=== PATIENT | male | born 1940 | race Caucasian/White ===

== ENCOUNTER 2023-09-08 20:03 | Inpatient (IN) | payer MEDICARE, OTHER, SELFPAY ==
[2023-09-08] VITALS (8 sets, daily range): BP systolic 124–183; BP diastolic 64–161; BMI 27.4
[2023-09-08 14:56] LABS: % Basophils 0.4 % (0-2); % Immature Granulocytes 0.2 % (0-0.5); % Lymphocytes 7.3 % (20.5-51.1); % Monocytes 6.7 % (1.7-9.3); % Neutrophils 85.4 % (42.2-75.2); Absolute Basophils 0.1 10^3/uL (0-0.2); Absolute Lymphocytes 0.9 10^3/uL (1.2-3.4); Absolute Monocytes 0.8 10^3/uL (0.1-0.6); Absolute Neutrophils 10.5 10^3/uL (1.4-6.5); Hematocrit 37.5 % (39.0-52.0); Hemoglobin 13.3 g/dL (13.0-18.0); Mean Corp Hgb Conc. 35.5 g/dL (33.0-37.0); Mean Corpuscular Hgb 31.1 pg (27.0-31.0); Mean Corpuscular Volume 87.6 fL (80.0-94.0); Mean Platelet Volume 9.7 fL (7.4-10.4); Nucleated Red Blood Cells % 0 % (-); Platelet Count 165 10^3/uL (130-400); Red Blood Cell Count 4.28 10^6/uL (4.70-6.10); Red Cell Dist. Width 12.2 % (11.5-14.5); White Blood Cell Count 12.3 10^3/uL (4.8-10.8)
[2023-09-08 15:13] LABS: COVID-19 Antigen Negative (Negative)
[2023-09-08 15:18] LABS: ALT (SGPT) 23 U/L (0-50); AST (SGOT) 37 U/L (17-59); Albumin 4.3 g/dl (3.5-5.0); Alkaline Phosphatase 72 U/L (38-126); Blood Urea Nitrogen 41 mg/dl (9-20); Calcium 9.2 mg/dl (8.4-10.2); Carbon Dioxide 21 mmol/L (22-30); Chloride 99 mmol/L (98-107); Glucose 297 mg/dl (70-99); Potassium 5.4 mmol/L (3.5-5.1); Sodium 132 mmol/L (135-145); Total Bilirubin 1.8 mg/dl (0.2-1.3); eGFR 30.85
[2023-09-08 16:06] LABS: Lactic Acid 3.5 mmol/L (0.7-2.0)
--- NOTE | 2023-09-08 17:27 | ED.GENMED ---
History of Present Illness
General
Chief Complaint: Fever
Time Seen by Provider: 09/08/23 17:17
Travel History
Have you had any contact with someone who has COVID-19?: No
Do you have any symptoms of coronavirus? Fever > 100 degrees, chills, cough, shortness of breath, sore throat, loss of taste or smell, muscle aches, or headache?: Yes
Symptoms:: fever
History of Present Illness
History of Present Illness:
82-year-old male with history of hypertension and diet-controlled diabetes presents to the emergency department for evaluation of fever and cough for the past 5 days. Fever was first noted today. States that he has been 'laying around all day' for
the past 5 days due to fatigue and weakness. Reports low p.o. intake during that time. Cough is generally nonproductive. Spouse does state that he seems to have occasional aspiration issues after eating. No chest pain or dyspnea currently
Past History
Past History
ED Past Medical History: HTN
Social History
Tobacco: Non-smoker
Alcohol: None
Drug: None
Personal:
Review of Systems
Review of Systems
Allergies reviewed?: Yes
All Other Systems: ROS reviewed and negative except as documented in HPI and ROS
Phy Exam
Physical Exam
Physical Exam:
GEN: Well appearing, NAD, WDWN
Eyes: PERRLA, EOMs intact, no scleral icterus
HENT: NCAT, oral mucosa moist, no JVD, no cervical adenopathy.
Lungs: Tachypneic, normal respiratory effort otherwise, coarse rhonchi heard at the right lower right lower lobes, no wheezes
Cardiac: RRR, no M/R/G, no peripheral edema. Radial pulses 2+ bilat
Neuro: AO x 3, no focal deficits to BUE/BLE, normal sensation throughout
MSK: No gross deformity or ecchymosis. No edema. No digital clubbing
Skin: No rashes, petechiae. Normal color, no pallor or jaundice.
Psych: Calm, cooperative, proper hygiene
Course
Orders/Labs/Results
Orders:
Orders
09/08/23 14:39
Electrocardiogram (*1) Urgent
Reason for Study: Other
Other Reason for Exam: Possible Sepsis
09/08/23 14:40
EKG- Treatment ONCE
09/08/23 14:48
COVID-19 Antigen Urgent
Source: Nasal Swab
Comprehensive Metabolic Panel Urgent
Lactic Acid Q4H
Comment: ON ICE, CANCEL 2ND ORDER IF FIRST LACTIC ACID LEVEL <2
Blood Culture Q30M
DIAZ Source: Blood/Venous
Specimen Description:
Comment: FROM 2 SEPARATE SITES
INF RAPID [Influenza A+B Rapid Molecular] Urgent
DIAZ Source: Nasal Swab
Specimen Description:
09/08/23 14:50
Complete Blood Count/With Diff Urgent
09/08/23 16:56
Blood Culture Q30M
DIAZ Source: Blood/Venous
Specimen Description:
Comment: FROM 2 SEPARATE SITES
09/08/23 17:29
0.9% Sodium Chloride 1000 ml [Nss] 1,000 ml IV BOLUS
Azithromycin 500 mg/250 ml [Zithromax Infusion] 500 mg in 250 ml IV NOW
CefTRIAXone [Rocephin] 1,000 mg IV NOW STA
09/08/23 19:03
Lactic Acid Q4H
Comment: ON ICE, CANCEL 2ND ORDER IF FIRST LACTIC ACID LEVEL <2
09/08/23 19:33
Admit/Transfer Patient As Directed
Co-Sign Provider:
Level of Care: Inpatient admission
Assign to:: Telemetry
Physician / Group: Volodymyr
Diagnosis: Pneumonia
Reason for Telemetry: Arrhythmia
Date to Stop Telemetry: 09/11/23
Time to Stop Telemetry: 11:00
Reason for Hospitalization: Pneumonia
Expected length of stay greater than two midnights?: Yes
ELOS- Estimated Length of Stay in days: 3
I certify the patient meets the requirements for IP care: Yes
09/08/23 19:41
Code Status As Directed
Resuscitation Status: Full Code
09/08/23 21:03
0.9% Sodium Chloride 1000 ml [Nss] 1,000 ml IV 100 mls/hr
Acetaminophen [Tylenol] 650 mg PO Q6HPRN PRN
Albuterol Nebs [Ventolin Nebules] 2.5 mg INH R Q4HPRN PRN
Dextrose 50%-Water [Dextrose 50% Syringe] 12.5 grams IV [id number] PRN
Glucagon [GlucaGen] 1 mg IM PRN PRN
Guaifenesin [Mucinex] 600 mg PO Q12
Heparin 5,000 units SC Q12
Polyethylene Glycol Powder [Miralax] 17 grams PO DAILYPRN PRN
Promethazine/Codeine [Phenergan with Codeine Syrup] 5 ml PO Q4HPRN PRN
09/08/23 21:03
Activity As Directed
Activity Level: Ambulate
With Assistance
Bedside Glucose Monitoring As Directed
Frequency: AC&HS
Additional Instructions:: Change to q6h if pt on TPN, tube feeding or not eating
Bladder Scan As Directed
Follow Bladder Retention/Intermittent Cath Algorithm?: Yes
PRN if no void in __ hours: 6
Frequency: Per Retention Algorithm
If Bladder Scan Result >: 400
then:: Straight cath
EKG with chest pain [ECG as needed] As Directed
ECG as needed for:: Chest Pain
I/O [Intake/ Output] As Directed
Frequency: Per unit guidelines
Orthostatic Vital Signs As Directed
Orthostatic VS Frequency: BID
Pneumatic Compression Sleeves As Directed
Type: Knee high
Precautions As Directed
Type of Precautions: Aspiration
Straight Cath As Directed
Frequency: Per Retention Algorithm
Additional Instructions: straight cath as needed per acute urinary retention algorithm for 24 hrs
Additional Instructions: for bladder scan greater than 400 mL
Vital Signs As Directed
Frequency: Per unit guidelines
Weight As Directed
Frequency: Daily
Chest PT [Rx Chest Pt] [RESP] Routine
Special Instructions: BID
Oxygen Therapy [O2 Therapy] [RESP] Routine
Titrate/Wean O2 to maintain O2 sat greater than (%): 94
Rx Incentive Spirometry [RESP] Routine
Frequency: q1h while awake
Ot Eval And Treat Routine
PT Consult [Pt Eval And Treat] Routine
Activity Level: Ambulate
With Assistance
Speech Therapy Eval & Treat Routine
DX Deep Vein Thrombosis Video Routine
09/08/23 22:00
Atorvastatin [Lipitor] 10 mg PO HS
Finasteride [Proscar] 5 mg PO HS
Gabapentin [Neurontin] 800 mg PO HS
Piperacillin/Tazo 2.25 Gram [Zosyn] 2.25 grams in 50 ml IV Q6H
09/09/23 06:00
EKG [Electrocardiogram (*1)] IN AM
Reason for Study: Chest Pain
Basic Metabolic Panel IN AM
Complete Blood Count/No Diff IN AM
Glycohemoglobin (HgbA1c) IN AM
09/09/23 07:30
Insulin Aspart Corrective Low [Novolog Flexpen-Low Resistance] See Protocol SC AC
09/09/23 08:00
Aspirin Low Dose EC [Aspir Low (Enteric Coated)] 81 mg PO DAILY
Docusate Sodium [Colace] 100 mg PO DAILY
Gabapentin [Neurontin] 400 mg PO DAILY
Metoprolol Xl [Toprol Xl] 50 mg PO DAILY
09/11/23 11:00
DC Protocol for Telemetry ONCE
Abnormal Lab Results
09/08/23 09/08/23
14:48 14:50
WBC 12.3 H 10^3/uL
(4.8-10.8)
RBC 4.28 L 10^6/uL
(4.70-6.10)
Hct 37.5 L %
(39.0-52.0)
MCH 31.1 H pg
(27.0-31.0)
Absolute Neuts (auto) 10.5 H 10^3/uL
(1.4-6.5)
Absolute Lymphs (auto) 0.9 L 10^3/uL
(1.2-3.4)
Absolute Monos (auto) 0.8 H 10^3/uL
(0.1-0.6)
Neutrophils % 85.4 H %
(42.2-75.2)
Lymphocytes % 7.3 L %
(20.5-51.1)
Sodium 132 L mmol/L
(135-145)
Potassium 5.4 H mmol/L
(3.5-5.1)
Carbon Dioxide 21 L mmol/L
(22-30)
BUN 41 H mg/dl
(9-20)
Creatinine 2.1 H mg/dL
(0.7-1.3)
Glucose 297 H mg/dl
(70-99)
Lactic Acid 3.5 H mmol/L
(0.7-2.0)
Total Bilirubin 1.8 H mg/dl
(0.2-1.3)
09/08/23 14:50
09/08/23 14:48
Vital Signs
Initial and Last Documented VS:
Initial Vital Signs
Temp Pulse Resp BP Pulse Ox
100.1 F 116 20 145/74 95
09/08/23 14:35 09/08/23 14:35 09/08/23 14:35 09/08/23 14:35 09/08/23 14:35
Last Documented Vital Signs
Temp Pulse Resp BP Pulse Ox
99.7 F 118 23 158/68 93
09/08/23 16:54 09/08/23 21:00 09/08/23 21:00 09/08/23 20:00 09/08/23 20:45
MDM/Problems Addressed
MDM/Problems Addressed:
On the chest x-ray shows no evidence for acute infiltrate on my interpretation, the patient clearly has abnormal breath sounds in the right middle and lower braun concerning for pneumonia. Clinical history is somewhat concerning for aspiration as
well. He is tachycardic minimally hypoxic even at rest, also noted to have acute kidney injury with uremia. All these factors make him high risk for outpatient therapy thus we will admit for IV antibiotics
Comment
Comment:
EKG independently interpreted by me shows a sinus tachycardia at a rate of [address] changes concerning for ischemia
*Critical Care Note
Total Time (30-74mins, 75-104mins- exclusive of procedures): Not Applicable
ED Attending Note
-
Portions of this chart may have been created with voice recognition software.� Occasional wrong word or��sound alike� substitutions may have occurred due to the inherent limitations of voice recognition software.
Discharge Plan
Departure
Patient Disposition: Admit
Date of Disposition: 09/08/23
Time of Disposition: 17:30
Admit to: Med/Surg
Presentation/result/management discussed w/ accepting MD/DO: Hospitalist
Discharge Problem:
Right lower lobe pneumonia
Interventions
Interventions:
*Risk Screen - Suicide Last Done: 09/08/23 14:35
*General Assessment Last Done: 09/08/23 14:35
*Neglect/Abuse Screening Last Done: 09/08/23 14:35
ED- Fall Risk Assessment Last Done: 09/08/23 17:13
*ED COVID-19 Vaccine History Last Done: 09/08/23 21:06
*Nursing Disposition Last Done: 09/08/23 21:06
ED- Neurological Assessment Last Done: 09/08/23 17:13
ED-Skin Assessment Last Done: 09/08/23 17:13
Discharge Date and Time
Discharge Date/Time: 09/08/23 21:07
[2023-09-08] MEDS: ZITHROMAX INFUSION 250 IV (17:44)
[2023-09-08] MEDS: ROCEPHIN 1000 MG IV (17:44)
[2023-09-08] MEDS: NSS 1000 IV ×2 (17:46→22:50)
[2023-09-08 19:20] LABS: Lactic Acid 1.8 mmol/L (0.7-2.0)
--- NOTE | 2023-09-08 19:51 | HPS.HSE ---
Family Physician
-
Family Physician: Jeremías Knight
Chief Complaint
-
Cough / Fatigue
History of Present Illness
Patient is an 82y M with PMH significant for hypertension, DM-II and CKD who presents to ED complaining of cough and fatigue. Patient states that he initially developed 'cold symptoms' on Monday including nasal congestion and rhinorrhea. On
Monday he started with a hacking, non-productive cough. Today he felt worse with subjective fevers and weakness. He was seen by his PCP and sent for outpatient labs and CXR. He was called this afternoon and advised to present to the ED for
evaluation for abnormal results.
Patient has a frequent cough during my interview / exam. No complaints of pain. No abdominal pain, N/V/D, etc.
Patient denies any recent travel, sick contacts, etc.
Medical History
Past Medical History
Past Medical History: Reports Other
Additional Past Medical History:
Hypertension
DM-II
CKD III
BPH
Peripheral Neuropathy
Colon Polyps
GERD
Past Surgical History: Reports Other
Additional Past Surgical History:
Hemicolectomy
TURP
Cataracts
Social History
Tobacco: Former Smoker (Quit smoking 40 years ago.)
Alcohol: Occasional
Drug: None
Family History
Family History: Not pertinent
Allergies / Home Medications
Allergies reflects when Allergies were last updated in [facility].
Home Medications with original date entered in [facility]
Allergy/Medication List:
Allergies
Allergy/AdvReac Type Severity Reaction Status Date / Time
No Known Allergies Allergy Verified 09/08/23 14:34
Home Medications
aspirin 81 mg tablet,delayed release 81 mg PO DAILY 02/19/10
omega 5-les-ktv-fish oil 1,000 mg (120 mg-180 mg) capsule 1,000 mg PO BID 10/01/10
acetaminophen 500 mg tablet (Tylenol Extra Strength) 1,000 mg PO Q6H PRN mild pain/fever 01/09/15
finasteride 5 mg tablet 5 mg PO HS 01/09/15
cjzhekmw-ygw-jhapx acid 0.4 mg-lycopene 300 mcg-lutein 250 mcg tablet (Centrum Silver) 1 ea PO DAILY 01/09/15
acetaminophen 325 mg tablet 650 mg PO Q6H PRN mild pain/fever 09/08/23
atorvastatin 10 mg tablet 10 mg PO HS 09/08/23
cyanocobalamin (vitamin B-12) 1,000 mcg tablet (Vitamin B-12) 1,000 mcg PO DAILY 09/08/23
docusate sodium 100 mg capsule (Stool Softener) 100 mg PO DAILY 09/08/23
ferrous sulfate 325 mg (65 mg iron) tablet 325 mg PO DAILY 09/08/23
gabapentin 400 mg capsule 400 mg PO DAILY 09/08/23
gabapentin 400 mg capsule 800 mg PO HS 09/08/23
glipizide 2.5 mg tablet, extended release 24 hr 2.5 mg PO BID 09/08/23
losartan 25 mg tablet 12.5 mg PO DAILY 09/08/23
metoprolol succinate 50 mg tablet,extended release 24 hr 50 mg PO DAILY 09/08/23
Review of Systems
-
History Source: Patient
A 12 point ROS was completed and negative except as noted: Yes
Constitutional: Reports Fever, Fatigue and Chills
EENT: Reports Runny Nose; Denies Sore Throat
Respiratory: Reports Cough; Denies Trouble Breathing
Cardiac: Denies Chest Pain or Palpitations
Abdomen/GI: Denies Abdominal Pain, Nausea, Vomiting or Diarrhea
: Denies Dysuria or Frequency
Musculoskeletal: Denies Joint Pain or Edema
Neurological: Denies Dizzy or Headache
Psych: Denies Depression or Anxiety
Physical Exam
Vital Signs
Vital Signs
Temp Pulse Resp BP Pulse Ox
99.7 F 98 16 124/78 95
09/08/23 16:54 09/08/23 19:00 09/08/23 19:00 09/08/23 19:00 09/08/23 19:00
Physical Exam
General: Other (82y M in no acute distress. Frequent cough during exam.)
HEENT: Other (Dry MM. Neck supple.)
Respiratory: Other (Coarse breath sounds over the R base. No wheezes. L lung clear.)
Cardiac: S1/S2 and Regular Rhythm; No Murmur
GI: Soft, Non Tender, Non Distended and Normal Bowel Sounds
Musculoskeletal: No Clubbing, No Cyanosis and No Edema
Neuro: AO x 3
Laboratory Results
-
09/08/23 14:50
09/08/23 14:48
Laboratory Results
Lactic Acid 1.8 mmol/L (0.7-2.0) 09/08/23 19:03
Total Bilirubin 1.8 mg/dl (0.2-1.3) H 09/08/23 14:48
AST 37 U/L (17-59) 09/08/23 14:48
ALT 23 U/L (0-50) 09/08/23 14:48
Alkaline Phosphatase 72 U/L (38-126) 09/08/23 14:48
Impression/Plan
-
A/P: 82y M with PMH significant for HTN, DM-II and CKD who presents to ED complaining of cough, fatigue and subjective fevers / chills.
RLL Pneumonia
- Admit for further evaluation and treatment.
- Patient presents with cough, leukocytosis and CXR showing mild R base opacity.
- Lactate level elevated on arrival - though hemodynamics appear stable.
- IV abx with Zosyn for now.
- Follow-up culture data and adjust as able.
- Aspiration precautions / Speech therapy evaluation.
- Supportive care with supplemental O2, mucolytics, cough suppressants, etc.
- Follow for clinical improvement.
Hyperkalemia
CKD III
- Potassium mildly elevated - will hold ARB acutely.
- IVFs overnight and follow for improvement in labs / lytes.
- Renal function appears to be at / near known baseline.
- Renally dose abx / meds.
Benign Hypertension
- Stable. Continue outpatient meds excepting losartan.
- Adjust as needed for adequate control.
DM-II
- Stable. Hold PO medications.
- Follow glucose and cover with insulin as needed.
- Update A1C.
BPH
- Stable. Continue finasteride.
- Bladder scan protocol.
DVT Prophylaxis: Subcut Heparin
Code Status: Full
[2023-09-08] MEDS: ZOSYN 50 IV (22:50)
[2023-09-08] MEDS: HEPARIN 5000 UNITS SC (23:23)
[2023-09-08] MEDS: LIPITOR 10 MG PO (23:23)
[2023-09-08] MEDS: MUCINEX 600 MG PO (23:23)
[2023-09-08] MEDS: NEURONTIN 300 MG PO (23:23)
[2023-09-08] MEDS: PROSCAR 5 MG PO (23:24)
[2023-09-09] VITALS (9 sets, daily range): BP systolic 109–150; BP diastolic 59–82; PULSE 82–103; O2SAT 95–97; BMI 27.4
[2023-09-09] MEDS: TYLENOL 650 MG PO ×2 (00:01→18:20)
[2023-09-09] MEDS: PHENERGAN WITH CODEINE SYRUP 5 ML PO ×2 (00:02→18:20)
[2023-09-09 01:31] LABS: Glucose - Point of Care 267 mg/dl (70-99)
[2023-09-09] MEDS: ZOSYN 50 IV ×4 (03:59→23:22)
--- NOTE | 2023-09-09 04:27 | PTCARENOTE ---
late entry. patient admitted to [facility] at 2315, placed on tele #27 sinus tach, patient t/f to bed from stretcher, pt very unsteady when attempted to stand from stretcher, patient inst not to get oob d/t weakness. placed on fall precautions. patient on
2 l o2 pulse ox 93-94%. patient oriented to room and floor routines. call domingo with in reach
--- NOTE | 2023-09-09 05:21 | PTCARENOTE ---
0040 late entry patients b/p remains elevated 175-178/68-74. Notified So Donavan Mendoza, repeat in 1 hr. patient without complaints at this time
--- NOTE | 2023-09-09 05:23 | PTCARENOTE ---
0245 b/p repeated manually 150/68, So Donavan erickson
[2023-09-09 06:23] LABS: Hematocrit 34.2 % (39.0-52.0); Hemoglobin 11.8 g/dL (13.0-18.0); Mean Corp Hgb Conc. 34.5 g/dL (33.0-37.0); Mean Corpuscular Hgb 31.6 pg (27.0-31.0); Mean Corpuscular Volume 91.4 fL (80.0-94.0); Mean Platelet Volume 9.7 fL (7.4-10.4); Platelet Count 143 10^3/uL (130-400); Red Blood Cell Count 3.74 10^6/uL (4.70-6.10); Red Cell Dist. Width 12.1 % (11.5-14.5); White Blood Cell Count 16.3 10^3/uL (4.8-10.8)
[2023-09-09 06:43] LABS: Blood Urea Nitrogen 38 mg/dl (9-20); Calcium 8.2 mg/dl (8.4-10.2); Carbon Dioxide 23 mmol/L (22-30); Chloride 102 mmol/L (98-107); Estimated Creatinine Clearance 28 ml/min; Glucose 246 mg/dl (70-99); Potassium 4.6 mmol/L (3.5-5.1); Sodium 134 mmol/L (135-145); eGFR 32.71
[2023-09-09 08:26] LABS: Glucose - Point of Care 223 mg/dl (70-99)
[2023-09-09] MEDS: NOVOLOG FLEXPEN-LOW RESISTANCE SC (09:56)
[2023-09-09] MEDS: ASPIR LOW (ENTERIC COATED) PO (09:56)
[2023-09-09] MEDS: MUCINEX PO (09:57)
[2023-09-09] MEDS: NEURONTIN PO (09:57)
[2023-09-09] MEDS: COLACE PO (09:57)
[2023-09-09 10:34] LABS: Glycohemoglobin (HgbA1c) 8.3 % (4.0-5.6)
[2023-09-09] MEDS: HEPARIN 5000 UNITS SC ×2 (10:38→22:34)
--- NOTE | 2023-09-09 12:10 | W.PN.HOSP.TC ---
Today's Communication/Plan
-
cont abx
follow cultures
PT/OT
Assessment / Plan
Assessment / Plan
pt is an 82 year old male
acute hypoxemic resp insufficiency with lactic acidosis--due to RLL Pneumonia--pt with bilateral rhonchi--cont O2--wean as able--cont zosyn--follow blood and sputum cultures--apprec speech--VSE Monday--asp precautions
Hyperkalemia/CKD III--improved with IVF--hold ARB
Essential Hypertension--Continue outpatient meds excepting losartan.
DM-II--Hold PO medications--Update L1W--TXT
BPH--Continue finasteride--Bladder scan protocol.
DVT Prophylaxis: Subcut Heparin
Code Status: Full
Anticipated Discharge: > 48 hours
Subjective/Interval History
-
Date of Service: September 09, 2023
pt not feeling well
Objective Data
-
Labs:
Laboratory Results
09/09/23
05:52
WBC 16.3 H
Hgb 11.8 L
Hct 34.2 L
Plt Count 143
Sodium 134 L
Potassium 4.6
Chloride 102
Carbon Dioxide 23
BUN 38 H
Creatinine 2.0 H
Glucose 246 H
Calcium 8.2 L
Vital Signs:
max temp for 24 hours
09/08/23
14:35
Temp 100.1 F
Vital Signs
Temp Pulse Resp BP Pulse Ox
97.6 F 94 16 112/67 97
09/09/23 11:13 09/09/23 11:13 09/09/23 11:13 09/09/23 11:13 09/09/23 11:13
I&O
09/08/23 09/09/23 09/10/23
06:59 06:59 06:59
Intake Total 1000 / 1000
Balance 1000 / 1000
Review of Systems
-
All other systems: Reviewed and negative
Respiratory: Reports Cough
Physical Exam
-
General: Well Developed and Well Nourished
HEENT: Normocephalic, Atraumatic and Oxygen
Respiratory: Rhonchi (all lung braun with 'hot potato like' voice)
Cardiac: Regular Rhythm and S1/S2; Negative Murmur
GI: Soft, Nontender, Nondistended and Normal Bowel Sounds
Musculoskeletal: No Clubbing, No Cyanosis and No Edema
Neuro: Awake
Psych: Calm
[2023-09-09 12:25] LABS: Glucose - Point of Care 183 mg/dl (70-99)
[2023-09-09] MEDS: NSS 1000 IV (13:28)
--- NOTE | 2023-09-09 13:28 | PTOTSP ---
SPEECH THERAPY SWALLOW EVALUATION:
Patient presents with grossly functional oropharyngeal swallow function at this time. However, patient with RLL pneumonia, suspicious for aspiration-related infection. Elevated WBC. Pt denies history of dysphagia/pneumonia. Pt with no significant
predisposing dysphagia risk factors at this time; However, patient at risk for aspiration/related complications given current tenuous respiratory/pulmonary status including frequent significant coughing and reduced coordination of breathe/swallow
pattern. Recommend Videofluoroscopic Swallowing Study to further assess swallow physiology. Given patient's intact cognitive status and ability to implement safe swallow strategies at this time, pt appears safe to continue oral diet until VFSS on
Sunday 09/10 (due to weekend schedule). Recommend cautious oral diet of IDDSI Level 6 Soft and Bite and thin liquids. Medications whole in puree. Strict aspiration precautions including: Upright positioning, small single sips only, small bites, slow
rate of intake, do not eat when short of breath or coughing, take breaks while eating/drinking, partial supervision to monitor for signs of aspiration. Recommend close monitoring of lung sounds and/or signs of aspiration. D/c oral diet prior to VFSS
if any signs of aspiration or decline in mental or respiratory status. Speech therapy to follow and provide further recommendations following VFSS. Discussed with pt, RN, and Dr. Rodriguez.
RECOMMEND:
1) Videofluoroscopic Swallowing Study
2) cautious oral diet of IDDSI Level 6 Soft and Bite and thin liquids
3) Medications whole in puree
4) Strict aspiration precautions including: Upright positioning, small single sips only, small bites, slow rate of intake, do not eat when short of breath or coughing, take breaks while eating/drinking, partial supervision to monitor for signs of
aspiration. Recommend close monitoring of lung sounds and/or signs of aspiration. D/c oral diet prior to VFSS if any signs of aspiration or decline in mental or respiratory status
5) Speech therapy to follow and provide further recommendations following VFSS
[2023-09-09] MEDS: NOVOLOG FLEXPEN-LOW RESISTANCE 1 UNITS SC (14:05)
[2023-09-09] MEDS: COLACE 100 MG PO (15:08)
[2023-09-09] MEDS: ASPIR LOW (ENTERIC COATED) 81 MG PO (15:08)
[2023-09-09] MEDS: MUCINEX 600 MG PO ×2 (15:08→22:35)
[2023-09-09] MEDS: TOPROL XL 50 MG PO (15:08)
[2023-09-09] MEDS: NEURONTIN 300 MG PO ×2 (15:09→22:35)
--- NOTE | 2023-09-09 16:57 | PTCARENOTE ---
Md made aware of tmax of 100.7 that improved to 100.1 with HR o f 122. PT currently resting without any difficulty. Pulse ox on room air was 90% so oxygen was kept at 2 liters 94-95%. PT on aspiration precuations and advanced to Level six
bite sized diet with thin liquid pt tolderated llunch without any issues. Pt was set up out of bed into chair.
[2023-09-09 17:31] LABS: Glucose - Point of Care 206 mg/dl (70-99)
[2023-09-09] MEDS: NOVOLOG FLEXPEN-LOW RESISTANCE 2 UNITS SC (18:14)
[2023-09-09 21:28] LABS: Glucose - Point of Care 225 mg/dl (70-99)
[2023-09-09] MEDS: LIPITOR 10 MG PO (22:35)
[2023-09-09] MEDS: PROSCAR 5 MG PO (22:36)
[2023-09-10] VITALS (7 sets, daily range): BP systolic 126–164; BP diastolic 24–78; BMI 27.7
[2023-09-10] MEDS: NSS 1000 IV ×2 (02:01→12:56)
[2023-09-10] MEDS: ZOSYN 50 IV ×4 (03:47→22:08)
[2023-09-10] MEDS: PHENERGAN WITH CODEINE SYRUP 5 ML PO (03:50)
[2023-09-10 06:20] LABS: Hematocrit 31.4 % (39.0-52.0); Mean Corpuscular Hgb 31.8 pg (27.0-31.0); Mean Corpuscular Volume 90.8 fL (80.0-94.0); Mean Platelet Volume 10.4 fL (7.4-10.4); Platelet Count 143 10^3/uL (130-400); Red Blood Cell Count 3.46 10^6/uL (4.70-6.10); Red Cell Dist. Width 12.2 % (11.5-14.5); White Blood Cell Count 10.6 10^3/uL (4.8-10.8)
[2023-09-10 06:42] LABS: ALT (SGPT) 21 U/L (0-50); AST (SGOT) 44 U/L (17-59); Alkaline Phosphatase 70 U/L (38-126); Blood Urea Nitrogen 32 mg/dl (9-20); Calcium 8.1 mg/dl (8.4-10.2); Carbon Dioxide 21 mmol/L (22-30); Chloride 107 mmol/L (98-107); Estimated Creatinine Clearance 34 ml/min; Glucose 146 mg/dl (70-99); Magnesium 1.9 mg/dl (1.6-2.3); Sodium 135 mmol/L (135-145); Total Bilirubin 1.1 mg/dl (0.2-1.3); Total Protein 5.8 g/dl (6.3-8.2); eGFR 42.75
[2023-09-10 07:31] LABS: Glucose - Point of Care 146 mg/dl (70-99)
[2023-09-10] MEDS: ASPIR LOW (ENTERIC COATED) 81 MG PO (09:35)
[2023-09-10] MEDS: NEURONTIN 300 MG PO ×2 (09:35→22:08)
[2023-09-10] MEDS: NOVOLOG FLEXPEN-LOW RESISTANCE SC (09:35)
[2023-09-10] MEDS: TOPROL XL 50 MG PO (09:36)
[2023-09-10] MEDS: MUCINEX 600 MG PO ×2 (09:36→20:05)
[2023-09-10] MEDS: COLACE 100 MG PO (09:36)
[2023-09-10] MEDS: HEPARIN 5000 UNITS SC ×2 (09:36→20:05)
--- NOTE | 2023-09-10 10:49 | W.PN.HOSP.TC ---
Today's Communication/Plan
-
wean O2
change cough med
add IS
Monday
Assessment / Plan
Assessment / Plan
pt is an 82 year old male
acute hypoxemic resp insufficiency with lactic acidosis--due to RLL Pneumonia----cont O2, wean as able--cont zosyn--follow blood and sputum cultures--apprec speech--VSMonday although voice stronger--asp precautions--change cough med to
hycodan--consideration for steroids....
Hyperkalemia/CKD III--improved with IVF, stopped--hold ARB
Essential Hypertension--Continue outpatient meds excepting losartan.
DM-II--restart meds--Update M6N--SWM
BPH--Continue finasteride--Bladder scan protocol.
DVT Prophylaxis: Subcut Heparin
Code Status: Full
Anticipated Discharge: > 48 hours
Subjective/Interval History
-
Date of Service: September 10, 2023
pt voice stronger today--c/o cough
Objective Data
-
Labs:
Laboratory Results
09/10/23
04:44
WBC 10.6
Hgb 11.0 L
Hct 31.4 L
Plt Count 143
Sodium 135
Potassium 4.0
Chloride 107
Carbon Dioxide 21 L
BUN 32 H
Creatinine 1.6 H
Glucose 146 H
Calcium 8.1 L
Total Bilirubin 1.1
AST 44
ALT 21
Alkaline Phosphatase 70
Vital Signs:
max temp for 24 hours
09/09/23
16:15
Temp 100.7 F H
Vital Signs
Temp Pulse Resp BP Pulse Ox
98.3 F 91 18 145/70 95
09/10/23 08:12 09/10/23 08:12 09/10/23 08:12 09/10/23 08:12 09/10/23 08:12
I&O
09/09/23 09/10/23 09/11/23
06:59 06:59 06:59
Intake Total 1000 / 1000 840 / 840 0 / 0
Balance 1000 / 1000 840 / 840 0 / 0
Review of Systems
-
All other systems: Reviewed and negative
Respiratory: Reports Cough
Physical Exam
-
General: Well Developed, Well Nourished and No Apparent Distress
HEENT: Normocephalic, Atraumatic, Oxygen and Other (voice better/stronger)
Respiratory: Rhonchi
Cardiac: Regular Rhythm; Negative S1/S2 or Murmur
GI: Soft, Nontender, Nondistended and Normal Bowel Sounds
Musculoskeletal: No Clubbing, No Cyanosis and No Edema
Skin: Warm
Neuro: Awake and Alert
[2023-09-10 11:33] LABS: Glucose - Point of Care 238 mg/dl (70-99)
[2023-09-10] MEDS: NOVOLOG FLEXPEN-LOW RESISTANCE 2 UNITS SC (12:57)
[2023-09-10] MEDS: HYCODAN SYRUP 5 ML PO ×2 (13:03→19:11)
[2023-09-10 17:00] LABS: Glucose - Point of Care 179 mg/dl (70-99)
[2023-09-10] MEDS: NOVOLOG FLEXPEN-LOW RESISTANCE 1 UNITS SC (17:38)
[2023-09-10 21:28] LABS: Glucose - Point of Care 224 mg/dl (70-99)
[2023-09-10] MEDS: PROSCAR 5 MG PO (22:08)
[2023-09-10] MEDS: LIPITOR 10 MG PO (22:08)
[2023-09-10] MEDS: TYLENOL 650 MG PO (23:19)
[2023-09-11] VITALS (8 sets, daily range): BP systolic 125–171; BP diastolic 68–85; PULSE 75; BMI 27.5
[2023-09-11] MEDS: ZOSYN 50 IV ×4 (03:56→22:03)
[2023-09-11] MEDS: HYCODAN SYRUP 5 ML PO ×3 (04:09→22:22)
[2023-09-11 06:29] LABS: Hematocrit 31.8 % (39.0-52.0); Hemoglobin 10.9 g/dL (13.0-18.0); Mean Corp Hgb Conc. 34.3 g/dL (33.0-37.0); Mean Corpuscular Hgb 31.1 pg (27.0-31.0); Mean Corpuscular Volume 90.6 fL (80.0-94.0); Mean Platelet Volume 9.7 fL (7.4-10.4); Platelet Count 156 10^3/uL (130-400); Red Blood Cell Count 3.51 10^6/uL (4.70-6.10); Red Cell Dist. Width 12.1 % (11.5-14.5); White Blood Cell Count 7.2 10^3/uL (4.8-10.8)
[2023-09-11 06:57] LABS: Blood Urea Nitrogen 25 mg/dl (9-20); Calcium 8.5 mg/dl (8.4-10.2); Carbon Dioxide 25 mmol/L (22-30); Chloride 106 mmol/L (98-107); Estimated Creatinine Clearance 37 ml/min; Glucose 161 mg/dl (70-99); Magnesium 1.9 mg/dl (1.6-2.3); Potassium 4.4 mmol/L (3.5-5.1); Sodium 135 mmol/L (135-145); eGFR 46.19
[2023-09-11 07:33] LABS: Glucose - Point of Care 173 mg/dl (70-99)
[2023-09-11] MEDS: TOPROL XL 50 MG PO (07:54)
[2023-09-11] MEDS: NEURONTIN 300 MG PO ×2 (07:54→22:00)
[2023-09-11] MEDS: COLACE 100 MG PO (07:54)
[2023-09-11] MEDS: MUCINEX 600 MG PO ×2 (07:54→21:59)
[2023-09-11] MEDS: ASPIR LOW (ENTERIC COATED) 81 MG PO (07:54)
[2023-09-11] MEDS: HEPARIN 5000 UNITS SC ×2 (07:55→21:57)
[2023-09-11] MEDS: NOVOLOG FLEXPEN-LOW RESISTANCE 1 UNITS SC (07:56)
--- NOTE | 2023-09-11 08:55 | PTOTSP ---
Speech Language Pathology
VIDEOFLUOROSCOPIC SWALLOWING EXAMINATION (VSE) completed. Overall, mild pharyngeal dysphagia noted characterized by pharyngeal residue, which pt was able to clear majority of with subsequent swallows and liquid washes. No penetration/aspiration
noted during study. Slight backflow from cervical esophagus to pyriform sinuses noted with all consistencies.
Recommend:
(1) Upgrade to regular solids/thin liquids
(2) Aspiration precautions: sit upright, slow rate, alternate solids and liquids, dry swallows if sensing pharyngeal residue
(3) Meds as tolerated
(4) DIRECTOR DIETETICS DEPARTMENT to sign off. Please reconsult as indicated
[2023-09-11 11:53] LABS: Glucose - Point of Care 241 mg/dl (70-99)
--- NOTE | 2023-09-11 12:17 | W.PN.HOSP.TC ---
Today's Communication/Plan
-
PT/OT today
plan for d/c tomorrow based on recommendations
Assessment / Plan
Assessment / Plan
pt is an 82 year old male
acute hypoxemic resp insufficiency with lactic acidosis--due to RLL Pneumonia----off O2--cont zosyn, change to oral at d/c-- blood and sputum cultures negative--apprec speech--passed VSE --cont cough med
Hyperkalemia/CKD III--improved with IVF, stopped--hold ARB
Essential Hypertension--Continue outpatient meds excepting losartan.
DM-II--restart meds--Update D7V--LVT
BPH--Continue finasteride--Bladder scan protocol.
DVT Prophylaxis: Subcut Heparin
Code Status: Full
Anticipated Discharge: Within 24 hours
Subjective/Interval History
-
Date of Service: September 11, 2023
pt says coughing is better but catches him at times--sore from coughing
Objective Data
-
Labs:
Laboratory Results
09/11/23
06:07
WBC 7.2
Hgb 10.9 L
Hct 31.8 L
Plt Count 156
Sodium 135
Potassium 4.4
Chloride 106
Carbon Dioxide 25
BUN 25 H
Creatinine 1.5 H
Glucose 161 H
Calcium 8.5
Vital Signs:
max temp for 24 hours
09/11/23
07:40
Temp 98.5 F
Vital Signs
Temp Pulse Resp BP Pulse Ox
98.8 F 74 17 143/68 92
09/11/23 11:45 09/11/23 11:45 09/11/23 11:45 09/11/23 11:45 09/11/23 11:45
I&O
09/10/23 09/11/23 09/12/23
06:59 06:59 06:59
Intake Total 840 / 840 880 / 880
Balance 840 / 840 880 / 880
Review of Systems
-
All other systems: Reviewed and negative
Respiratory: Reports Cough (improving)
Physical Exam
-
General: Well Developed, Well Nourished and No Apparent Distress
HEENT: Normocephalic and Atraumatic
Respiratory: Clear to Auscultation; Negative Wheezes or Rhonchi
Cardiac: Regular Rhythm and S1/S2; Negative Murmur
GI: Soft, Nontender, Nondistended and Normal Bowel Sounds
Musculoskeletal: No Clubbing, No Cyanosis and No Edema
Neuro: Awake
[2023-09-11] MEDS: NOVOLOG FLEXPEN-LOW RESISTANCE 2 UNITS SC ×2 (13:31→18:41)
--- NOTE | 2023-09-11 13:38 | PN.CDI ---
CDI
- -
CDI:
Physician Documentation Request
Admit Date: 09/08/23 20:03
Dear Doctor Michael,
Patient admitted with pneumonia.
09/07 wbc 12.3 09/08 16.3
09/07 t max 100.1 09/08 100.7
09/07 presenting heart rate 116
presenting respiratory rate 20-21
Lactic acid 3.5
Please clarify which of the following most accurately describes the status of the patient's infection:
Sepsis
- Systemic manifestations of infection, with 2 or more SIRS criteria which include:
- Fever >100.4 degrees F or hypothermia < 96.8 degrees F
- Leukocytosis - WBC > 12,000 or leukopenia - WBC < 4,000 or > 10% bands
- Tachycardia > 90 beats per minute
- Tachypnea - RR > 20 breaths per minute or PaCO2 , 32mmHg
Source: Merck Manual 2013
Severe Sepsis
Localized Infection Only, Without Systemic Illness
Other
Use of terms such as suspected, likely, concern for, or probable (associated with a specific diagnosis that is being evaluated, monitored, or treated as if it exists) are acceptable and can be coded in the inpatient setting, when documented at the
time of discharge.
Thank you,
Raquel Hope RN, BSN
CDI Specialist
tiger text
Please use your independent medical judgment in providing your response.
--- NOTE | 2023-09-11 14:38 | CM ---
Met with pt at bedside
Pt reports lives with his in a 2 story home
Independent, active, driving
DME - none
Denies past SNF/HH
Will have ride at d/c
PCP - Dr Shakeel Moreno
Pharm - [facility]
Plan - home no needs
[2023-09-11 16:38] LABS: Glucose - Point of Care 246 mg/dl (70-99)
[2023-09-11] MEDS: LIPITOR 10 MG PO (21:59)
[2023-09-11] MEDS: PROSCAR 5 MG PO (22:00)
[2023-09-11 22:24] LABS: Glucose - Point of Care 187 mg/dl (70-99)
[2023-09-12 03:02] VITALS: BP 162/90
[2023-09-12] MEDS: FLUSH (NSS) 1 FLUSH IV (04:44)
[2023-09-12] MEDS: ZOSYN 50 IV ×2 (04:44→11:28)
[2023-09-12 06:00] VITALS: BMI 27.5
[2023-09-12 06:13] LABS: Blood Urea Nitrogen 22 mg/dl (9-20); Calcium 9.2 mg/dl (8.4-10.2); Carbon Dioxide 21 mmol/L (22-30); Chloride 103 mmol/L (98-107); Estimated Creatinine Clearance 39 ml/min; Glucose 182 mg/dl (70-99); Potassium 4.2 mmol/L (3.5-5.1); Sodium 132 mmol/L (135-145); eGFR 50.18
[2023-09-12 07:20] VITALS: BP 164/94
[2023-09-12 07:55] LABS: Glucose - Point of Care 200 mg/dl (70-99)
[2023-09-12] MEDS: COLACE 100 MG PO (09:00)
[2023-09-12] MEDS: NEURONTIN 300 MG PO (09:00)
[2023-09-12] MEDS: MUCINEX 600 MG PO (09:00)
[2023-09-12] MEDS: HEPARIN 5000 UNITS SC (09:00)
[2023-09-12] MEDS: ASPIR LOW (ENTERIC COATED) 81 MG PO (09:00)
[2023-09-12] MEDS: TOPROL XL 50 MG PO (09:01)
[2023-09-12] MEDS: NOVOLOG FLEXPEN-LOW RESISTANCE 2 UNITS SC (09:01)
[2023-09-12 11:14] LABS: Glucose - Point of Care 260 mg/dl (70-99)
[2023-09-12] MEDS: NOVOLOG FLEXPEN-LOW RESISTANCE 3 UNITS SC (11:20)
[2023-09-12 11:35] VITALS: BP 167/73
--- NOTE | 2023-09-12 11:54 | W.PN.HOSP.TC ---
Addendum entered and electronically signed by Oralia Rodriguez MD 09/12/23 16:19:
Acute kidney injury on chronic kidney disease stage III--with IV fluid rehydration, creatinine has improved
Original Note:
Today's Communication/Plan
-
d/c
Assessment / Plan
Assessment / Plan
pt is an 82 year old male
acute hypoxemic resp insufficiency with lactic acidosis (on admission met sepsis criteria)--due to RLL Pneumonia----off O2--cont zosyn, change to oral at d/c-- blood and sputum cultures negative--apprec speech--passed VSE --cont cough med
Hyperkalemia/CKD III--improved with IVF, stopped--hold ARB
Essential Hypertension--Continue outpatient meds excepting losartan.
DM-II--restart meds--Update S6H--CQX
BPH--Continue finasteride--Bladder scan protocol.
DVT Prophylaxis: Subcut Heparin
Code Status: Full
Anticipated Discharge: Today
Subjective/Interval History
-
Date of Service: September 12, 2023
pt ready for d/c
Objective Data
-
Labs:
Laboratory Results
09/12/23
05:31
Sodium 132 L
Potassium 4.2
Chloride 103
Carbon Dioxide 21 L
BUN 22 H
Creatinine 1.4 H
Glucose 182 H
Calcium 9.2
Vital Signs:
max temp for 24 hours
09/11/23
20:00
Temp 99.6 F
Vital Signs
Temp Pulse Resp BP Pulse Ox
98.4 F 86 17 164/94 94
09/12/23 07:20 09/12/23 09:01 09/12/23 07:20 09/12/23 09:01 09/12/23 07:20
I&O
09/11/23 09/12/23 09/13/23
06:59 06:59 06:59
Intake Total 880 / 880 720 / 720
Balance 880 / 880 720 / 720
Review of Systems
-
All other systems: Reviewed and negative
Physical Exam
-
General: Well Developed, Well Nourished and No Apparent Distress
HEENT: Normocephalic and Atraumatic
Respiratory: Clear to Auscultation; Negative Wheezes or Rhonchi
Cardiac: Regular Rhythm and S1/S2; Negative Murmur
GI: Soft, Nontender, Nondistended and Normal Bowel Sounds
Musculoskeletal: No Clubbing, No Cyanosis and No Edema
--- NOTE | 2023-09-12 12:05 | CM ---
Addendum entered by Agnieszka Negro 09/12/23 13:57:
Met with patient at bedside
IMM benefit explained; form signed @ 1342
Transportation: will provide transport home
Plan: Discharge to home today with home health services provided by [facility]
Original Note:
Spoke with via phone this morning; home health need explained; agreeable to send referral to [facility]
Plan: discharge to home today with home health services; referral sent to [facility] liaison
--- NOTE | 2023-09-12 13:37 | VNURNOTE ---
Home Health Liaison met with patient at 1140 to discuss [facility] nurse/therapy, visits, schedule and homebound status. Patient is agreeable and understands that visits at home will be 2-3 x per week to assess and teach medical management.
[facility] brochure provided with contact information. Patient is aware that [facility] will contact him for start of care in 1-2 days after discharge from .
[facility] referral completed in [facility].
--- NOTE | 2023-09-12 15:01 | PN.CDI ---
CDI
- -
CDI:
Physician Documentation Request
Admit Date: 09/08/23 20:03
Dear Doctor Michael,
Patient admitted with pneumonia. Noted history of CKD III.
Creatinine resulted as follows:
Laboratory Tests
09/08/23 09/09/23 09/10/23
14:48 05:52 04:44
Creatinine 2.1 H 2.0 H 1.6 H
09/11/23 09/12/23
06:07 05:31
Creatinine 1.5 H 1.4 H
Could you please provide a diagnosis that supports the above lab abnormalities and additional evaluation/ monitoring:
EMILY on CKD III
CKD only
Other
Criteria for EMILY*
1 Increase in serum creatinine by > or = to 0.3 mg/dL (> or = to 26.5 micromol/L) within 48 hours, OR
2 Increase in serum creatinine to > or = to 1.5 times baseline, which is known or presumed to have occurred within 7 days, OR
3 Urine volume < 0.5 nL/kg/hour for six hours
Use of terms such as suspected, likely, concern for, or probable (associated with a specific diagnosis that is being evaluated, monitored, or treated as if it exists) are acceptable and can be coded in the inpatient setting, when documented at the
time of discharge.
Thank you,
Raquel Hope RN, BSN
CDI Specialist
tiger text
Please use your independent medical judgment in providing your response.
--- NOTE | 2023-09-12 16:19 | W.DCSUMMARY ---
Discharge Summary
Discharge Data
Date of Admission: 09/08/23
Date of Discharge: 09/12/23
-
Pending Results: No
Hospital Course
Primary care physician : Jeremías Knight
Principal Discharge diagnosis : Presumed sepsis on admission with acute hypoxemic respiratory insufficiency and lactic acidosis due to right lower lobe pneumonia, acute kidney injury on chronic kidney disease stage III with hyperkalemia
Chronic Discharge diagnosis : Essential hypertension, type 2 diabetes mellitus, benign prostatic hyperplasia
Hospital Course : Patient was an 82-year-old male who came into the emergency department complaining of cough and fatigue. He developed what he called 'cold symptoms' on the Monday prior to admission which included nasal congestion and runny nose.
On the Monday prior to admission, he started with a hacking nonproductive cough. He stated he felt worse and was weak with fevers. Outpatient labs and chest x-ray were done by his primary care physician and he was advised to come to the ED for
abnormal results. Workup found him to have pneumonia and he was admitted.
Problem #1: Presumed sepsis on admission (by criteria) with acute hypoxemic respiratory insufficiency and lactic acidosis due to right lower lobe pneumonia. Patient was admitted and seen in consultation by speech. There was some concern that this
may have been aspiration. Bedside evaluations were marginal and the patient did undergo a video swallow which he passed and regular diet was provided. Patient was started on Zosyn and he was able to come off oxygen. He was changed to oral Keflex
at discharge. Blood and sputum cultures were checked and were negative.
Problem #2: Acute kidney injury on chronic kidney disease stage III with hyperkalemia. This was likely due to poor p.o. intake due to feeling ill prior to admission. He was given IV fluids. Hyperkalemia improved as well as the acute kidney
injury. Creatinine went from 2.1 on the day of admission down to 1.4 on the day of discharge.
Problem #3: All other medical issues. These include Essential hypertension, type 2 diabetes mellitus, benign prostatic hyperplasia. Issues were stable during his hospitalization. Medications were continued as able.
Patient was also seen in consultation by physical therapy and Occupational Therapy who recommended home health. Visiting nurses have been consulted. Patient is stable for discharge home at this time. If there are any questions regarding this
dictation or his hospital stay, please not hesitate to call. Our office number is [phone].
Important imaging findings :
CXR IMPRESSION:
Small band of opacity in the right middle lobe. Diagnostic possibilities are (1) a band of atelectasis/scarring, (2) endobronchial infection, or (3) mild pneumonia.
Discharge Plan
-
Patient Disposition: Home with Home Care
Discharge Diagnosis/Procedures: Acute hypoxemic respiratory insufficiency with lactic acidosis due to right lower lobe pneumonia, hyperkalemia with chronic kidney disease stage III, essential hypertension, type 2 diabetes mellitus, benign prostatic
hyperplasia
Condition: Fair
Diet: Diabetic, Carb Controlled
Activity: As tolerated
Driving Restrictions: As prior to admission
Bathing Restrictions: None
Other Services: VN, PT and OT
Referrals:
Jeremías Knight MD [Family Provider] - in less than 1 week
Prescriptions:
New
dextromethorphan-guaifenesin [Robitussin Cough-Chest Sunny DM] 5-100 mg/5 mL liquid
10 ml PO Q6H PRN (Reason: cough) Qty: 500 0RF
cephalexin 500 mg capsule
500 mg PO TID Qty: 21 0RF
Continued
aspirin 81 MG tablet,delayed release (DR/EC)
81 mg PO DAILY
omega 1-raz-kvx-fish oil 1,000 MG capsule
1,000 mg PO BID
acetaminophen [Tylenol Extra Strength] 500 MG tablet
1,000 mg PO Q6H PRN (Reason: mild pain/fever)
finasteride 5 MG tablet
5 mg PO HS
Centrum Silver 1 EACH tablet
1 ea PO DAILY
acetaminophen 325 mg Tablet
650 mg PO Q6H PRN (Reason: mild pain/fever)
atorvastatin 10 mg tablet
10 mg PO HS
metoprolol succinate 50 mg tablet extended release 24 hr
50 mg PO DAILY
gabapentin 400 mg capsule
400 mg PO DAILY
gabapentin 400 mg capsule
800 mg PO HS
cyanocobalamin (vitamin B-12) [Vitamin B-12] 1,000 mcg Tablet
1,000 mcg PO DAILY
glipizide 2.5 mg tablet extended release 24hr
2.5 mg PO BID
ferrous sulfate 325 mg (65 mg iron) Tablet
325 mg PO DAILY
losartan 25 mg tablet
12.5 mg PO DAILY
docusate sodium [Stool Softener] 100 mg Capsule
100 mg PO DAILY
Discharge Orders:
Discharge Patient (As Directed); Ordered 09/12/23
Ordered By: Oralia Rodriguez
Discharge Date and Time
Discharge Date/Time: 09/12/23 14:30
Print Language: DANISH
== END 2023-09-12 14:30 | disposition home health service (06) | DRG 871 ==
LOC: 3 WEST ACU 20:03
PROVIDERS: Emergency Medicine; ADMITTING PHYSICIAN Hospitalist; ATTENDING PHYSICIAN Internal Medicine; EMERGENCY PHYSICIAN Emergency Medicine; FAMILY PHYSICIAN Family Medicine
DX: A41.9 Sepsis, unspecified organism (principal); J18.9 Pneumonia, unspecified organism; E87.20 Acidosis, unspecified; N17.9 Acute kidney failure, unspecified; E87.5 Hyperkalemia; I12.9 Hypertensive chronic kidney disease with stage 1 through stage 4 chronic kidney disease, or unspecified chronic kidney disease; N18.30 Chronic kidney disease, stage 3 unspecified; R09.02 Hypoxemia; E11.22 Type 2 diabetes mellitus with diabetic chronic kidney disease; N40.0 Benign prostatic hyperplasia without lower urinary tract symptoms
CPT/HCPCS: 36415; 71046; 74230; 80048; 80053; 82962; 83036; 83605; 83735; 85025; 85027; 87040; 87205; 87502; 87811; 92610; 92611; 93005; 96365; 96375; 97116; 97162; 97166; 97530; 97535; 99285

== ENCOUNTER → 2024-03-09 09:55 | Outpatient (REF) | payer MEDICARE, OTHER, SELFPAY | LOC: RCS 09:55 | PROVIDERS: ATTENDING PHYSICIAN Family Medicine | DX: R42 Dizziness and giddiness (principal); R07.9 Chest pain, unspecified | CPT/HCPCS: 93225; 93226; 93306 ==

== ENCOUNTER → 2024-05-10 08:21 | Outpatient (REF) | payer MEDICARE, OTHER, SELFPAY | LOC: MRI 3T 08:21 | PROVIDERS: ATTENDING PHYSICIAN Physician Assistant | DX: R26.89 Other abnormalities of gait and mobility (principal); R26.81 Unsteadiness on feet | CPT/HCPCS: 70551 ==

== ENCOUNTER → 2024-08-13 15:29 | Outpatient (REF) | payer MEDICARE, OTHER, SELFPAY | LOC: RAD 15:29 | PROVIDERS: ATTENDING PHYSICIAN Physician Assistant; FAMILY PHYSICIAN Family Medicine | DX: R19.4 Change in bowel habit (principal); R10.84 Generalized abdominal pain; N40.0 Benign prostatic hyperplasia without lower urinary tract symptoms | CPT/HCPCS: 74177; Q9967 ==

== ENCOUNTER 2024-11-14 06:23 | Day surgery (SDC) | payer MEDICARE, OTHER, SELFPAY ==
[2024-11-14 07:22] LABS: Glucose - Point of Care 175 mg/dl (70-99)
== END 2024-11-14 09:03 | disposition home or self-care (01) ==
LOC: GI 06:23
PROVIDERS: ATTENDING PHYSICIAN Internal Medicine Gastroenterology
DX: R19.4 Change in bowel habit (principal); R15.9 Full incontinence of feces; K57.30 Diverticulosis of large intestine without perforation or abscess without bleeding; K63.89 Other specified diseases of intestine; K64.8 Other hemorrhoids
CPT/HCPCS: 45380; 88305; 82962

== ENCOUNTER 2025-03-07 06:31 | Day surgery (SDC) | payer MEDICARE, OTHER, SELFPAY ==
[2025-03-07 08:06] LABS: Glucose - Point of Care 114 mg/dl (70-99)
== END 2025-03-07 09:25 | disposition home or self-care (01) ==
LOC: GI 06:31
PROVIDERS: ATTENDING PHYSICIAN Internal Medicine Gastroenterology
DX: R63.4 Abnormal weight loss (principal); R93.3 Abnormal findings on diagnostic imaging of other parts of digestive tract; K29.70 Gastritis, unspecified, without bleeding
CPT/HCPCS: 43239; 82962; 88305; 88342

== ENCOUNTER 2025-05-09 06:14 | Day surgery (SDC) | payer MEDICARE, OTHER, SELFPAY ==
[2025-05-09 07:39] VITALS: BMI 24.6
[2025-05-09 07:40] VITALS: BP 145/73; BMI 24.6
[2025-05-09 07:40] LABS: Glucose - Point of Care 187 mg/dl (70-99)
== END 2025-05-09 10:57 | disposition home or self-care (01) ==
LOC: GI 06:14
PROVIDERS: ATTENDING PHYSICIAN Internal Medicine Gastroenterology
DX: K31.89 Other diseases of stomach and duodenum (principal); K86.9 Disease of pancreas, unspecified; K31.7 Polyp of stomach and duodenum; D17.5 Benign lipomatous neoplasm of intra-abdominal organs
CPT/HCPCS: 43254; 43237; 82962; 88305